=== PATIENT | female | born 1975 | race African-American/Black ===

== ENCOUNTER 2017-01-17 11:08 | Emergency (ER) | payer BC ==
[~2017-01-17] VITALS: Ht 152.4 cm; Wt 79.0 kg
[~2017-01-17 11:08] MED LIST: PRO-AIR
[2017-01-17] MEDS ORDERED: SODIUM CHLORIDE 0.9% 1,000 ML IV ONE (11:33)
[2017-01-17] MEDS ORDERED: ONDANSETRON HCL 4MG/2ML VIAL IV STA (11:33)
[2017-01-17 12:15] LABS: AMMONIA 11 uMol/L (<32)
[2017-01-17 12:19] LABS: CARBON DIOXIDE 29 mEq/L (21-32); CHLORIDE 104 mEq/L (98-107); ETHANOL BLOOD < 10 mg/dL
[2017-01-17 12:20] LABS: HCG SCREEN NEGATIVE
[2017-01-17 12:21] LABS: BASOPHILS % 0.6 % (0.0-2.0); EOSINOPHILS % 0.9 % (0.0-5.0); HEMATOCRIT. 39.8 % (36.0-48.0); HEMOGLOBIN. 13.5 g/dL (12.0-16.0); LYMPHOCYTES % 23.2 % (20.0-50.0); MEAN CORPUSCULAR HEMOGLOBIN 30.4 pg (28.0-32.0); MEAN PLATELET VOLUME 8.8 fl (7.4-10.4); MONOCYTES % 7.5 % (2.0-8.0); NEUTROPHILS % 67.8 % (40.0-76.0); PLATELET 309 x1000/uL (130-400); RED BLOOD CELL COUNT 4.42 mill/uL (4.2-5.4); RED CELL DISTRIBUTION WIDTH 13.7 % (11.6-14.6)
[2017-01-17 12:23] LABS: TROPONIN I < 0.02 ng/mL (0.00-0.04)
[2017-01-17 14:30] VITALS: BP 141/89
== END 2017-01-17 15:19 | disposition home or self-care (01) ==
LOC: ER 13:34
DX: R51 Headache (principal); E86.0 Dehydration; R03.0 Elevated blood-pressure reading, without diagnosis of hypertension; R94.31 Abnormal electrocardiogram [ECG] [EKG]; M25.512 Pain in left shoulder; J45.909 Unspecified asthma, uncomplicated; Z88.0 Allergy status to penicillin; Z91.018 Allergy to other foods
CPT/HCPCS: 36415; 70450; 71010; 80053; 82140; 83690; 83880; 84443; 84484; 84703; 85025; 93005; 96361; 96374; 99285; G0482; J2405; J7030; Z7610

== ENCOUNTER 2024-01-03 07:39 | Emergency (ER) | payer BC ==
[~2024-01-03] VITALS: Ht 165.1 cm; Wt 73.0 kg
[2024-01-03] MEDS ORDERED: IPRATROPIUM BROMIDE (0.02%) 0.5MG/2.5ML NEB HHN STA (07:42)
[2024-01-03 07:50] VITALS: PULSE 128; RESP 22; O2SAT 98
[2024-01-03] MEDS: ALBUTEROL (0.083%) 2.5MG/3ML NEB HHN STA (08:04)
[2024-01-03] MEDS: MAGNESIUM 2 G PREMIX 50 ML IV STA (08:08)
[2024-01-03] MEDS: METHYLPREDNISOLONE SOD SUCC 125MG/2ML (ACT-O-VIAL) IV STA (08:08)
[2024-01-03 08:11] LABS: CARBON DIOXIDE 27 mEq/L (21-32); CHLORIDE 105 mEq/L (98-107); POTASSIUM 3.8 mEq/L (3.5-5.1); SODIUM 140 mEq/L (136-145)
[2024-01-03 08:12] LABS: CALCIUM 9.3 mg/dL (8.7-10.4)
[2024-01-03 08:13] LABS: BASOPHILS % 0.8 % (0.0-2.0); EOSINOPHILS % 2.9 % (0.0-5.0); HEMATOCRIT. 43.1 % (36.0-48.0); HEMOGLOBIN. 14.3 g/dL (12.0-16.0); LYMPHOCYTES % 51.3 % (20.0-50.0); MEAN CORPUSCULAR HGB CONC 33.1 g/dL (31.0-37.0); MEAN CORPUSCULAR VOLUME 93.6 fL (81.0-99.0); MEAN PLATELET VOLUME 8.7 fl (7.4-10.4); MONOCYTES % 14.2 % (2.0-8.0); NEUTROPHILS % 30.8 % (40.0-76.0); PLATELET 307 x1000/uL (130-400); RED BLOOD CELL COUNT 4.61 mill/uL (4.2-5.4); RED CELL DISTRIBUTION WIDTH 13.7 % (11.6-14.6); WHITE BLOOD COUNT 6.5 x1000/uL (4.5-11.0)
[2024-01-03] MEDS: SODIUM CHLORIDE 0.9% 1,000 ML IV ONE (08:15)
[2024-01-03 08:17] LABS: GLUCOSE 164 mg/dL (70-105); UREA NITROGEN BLOOD 19 mg/dL (9-23)
[2024-01-03 08:23] LABS: TROPONIN I HIGH SENSITIVITY < 4 ng/L (3.0-34)
[2024-01-03 08:25] VITALS: PULSE 131; RESP 18; O2SAT 100
[2024-01-03] MEDS ORDERED: AMLODIPINE 10MG TABLET PO ONE (10:00)
[2024-01-03] MEDS ORDERED: P50 PO (10:17)
[2024-01-03] MEDS ORDERED: ALBU6.7H15 INH (10:17)
[2024-01-03] MEDS ORDERED: AZIT500T2 PO (10:17)
[2024-01-03] MEDS: AMLODIPINE 5MG TABLET PO NR (10:26)
[2024-01-03 10:29] VITALS: BP 139/104; PULSE 139; RESP 12; TEMP 98.2
[2024-01-04] MEDS ORDERED: METO-539 PO (07:05)
[2024-01-04] MEDS ORDERED: AMLO10TA80 MT (07:07)
[2024-01-12] MEDS ORDERED: FLUT1DIS3 INH (10:32)
[2024-01-12] MEDS ORDERED: ATROV INH (10:32)
[2024-01-12] MEDS ORDERED: P20 MT (10:32)
[2024-01-12] MEDS ORDERED: DILT360C27 MT (10:32)
[2024-01-12] MEDS ORDERED: ATROV IH (10:32)
== END 2024-01-03 10:34 | disposition home or self-care (01) ==
LOC: ER 07:39 → CANBEDREQ 10:20 → ER 10:34
DX: J45.901 Unspecified asthma with (acute) exacerbation (principal); Z88.0 Allergy status to penicillin; Z91.018 Allergy to other foods; Z20.822 Contact with and (suspected) exposure to COVID-19
CPT/HCPCS: 80048; 83880; 85025; 84484; 36415; 71045; 94640; 93005; 96365; 96375; 99285; 87426; J3475; J2919; Z7610 ×2; J7030